=== PATIENT | male | born 1945 | race Caucasian/White ===

== ENCOUNTER → 2016-12-01 | Day surgery (SDC) | payer OTHER ==
[~2016-12-01] VITALS: Ht 172.7 cm; Wt 67.1 kg
--- NOTE | 2016-12-01 08:50 | Operative Report ---
Operative/Inv Procedure Report Surgery Date: 12/01/16 Name of Procedure: Cataract extraction lens implantation correction of presbyopia left eye Pre-Operative Diagnosis: Age-related cataract and presbyopia left eye 20/60 vision Post-Operative Diagnosis: Same Estimated Blood Loss: none Surgeon/Senior Maintenance Technician: HO MICHAEL MD Anesthesia: local monitored anesthesi Complications: None Operative/Procedure Note Note: The patient was brought to the operating room standard monitoring equipment was attached the patient was prepped and draped in the usual fashion for intraocular surgery. A lid speculum was placed to retract the lids. The case was begun by making 2 partial-thickness corneal relaxing incisions at 95. A temporal incision with a 2.4 mm keratome. The eye was stabilized with a Mckeon ring during this incision. 1 mL of non-preserved lidocaine was introduced into the anterior chamber to provide anesthesia. The anterior chamber was then filled and deepened with viscoelastic. A curvilinear capsulorrhexis was achieved using a 30-gauge needle and is a cystotome and capsulorrhexis was finished using a Utrata forceps. A second or paracentesis incision was made temporally with a 1 mm MVR blade. The lens was then hydrodissected with balanced salt solution and found to be rotatable. The lens was emulsified using phacoemulsification and a modified four-quadrant cracking technique. The residual cortical material was removed using automated irrigation and aspiration and as much of the anterior capsular rim was cleaned as well as possible. The posterior capsule was cleaned first with the automated machine on a low setting and then manually with a Elliot squeegee. The capsular bag was deepened with viscoelastic. The lens a Technis multifocal ZLB00 11.0 Diopter placed into the bag under direct visualization and rotated so that the haptics were at 12 and 6:00. Viscoelastic was then removed from the eye by flushing it out and then by automated irrigation and aspiration. The eye was pressurized to a normal tone. 1/10 of a cc of vancomycin solution was introduced into the anterior chamber to provide antibiotic prophylaxis. The wounds were sealed by hydrating the stroma adjacent to them and the eye was left at a proper tone after the wounds were checked and found not to be leaking. The lid speculum was removed from the orbit. Antibiotic and steroid drops were placed on the eye and then the eye was shielded. Monitoring equipment was removed from the patient and the patient was removed from the operative suite to the holding area. The patient tolerated the procedure well and will be seen in the office tomorrow.
== END ==
LOC: STS 01:53
DX: H25.9 Unspecified age-related cataract (principal); H52.4 Presbyopia
CPT/HCPCS: J2250; V2632; V2788-GY

== ENCOUNTER → 2016-12-15 | Day surgery (SDC) | payer OTHER ==
[~2016-12-15] VITALS: Ht 172.7 cm; Wt 67.1 kg
--- NOTE | 2016-12-15 13:15 | Operative Report ---
Operative/Inv Procedure Report Surgery Date: 12/15/16 Name of Procedure: Cataract extraction lens implantation right eye Pre-Operative Diagnosis: Age-related cataract right eye 30 vision 20/80 glare vision Post-Operative Diagnosis: Same Estimated Blood Loss: none Surgeon/Press Clipper: FERNNADA AMARO,HO Stringer Anesthesia: local monitored anesthesi Complications: None Operative/Procedure Note Note: The patient was brought to the operating room standard monitoring equipment was attached the patient was prepped and draped in the usual fashion for intraocular surgery. A lid speculum was placed to retract the lids. The case was begun by making a temporal incision with a 2.4 mm keratome. The eye was stabilized with a Mckeon ring during this incision. 1 mL of non-preserved lidocaine was introduced into the anterior chamber to provide anesthesia. The anterior chamber was then filled and deepened with viscoelastic. A curvilinear capsulorrhexis was achieved using a 30-gauge needle and is a cystotome and capsulorrhexis was finished using a Utrata forceps. A second or paracentesis incision was made temporally with a 1 mm MVR blade. The lens was then hydrodissected with balanced salt solution and found to be rotatable. The lens was emulsified using phacoemulsification and a modified four-quadrant cracking technique. The residual cortical material was removed using automated irrigation and aspiration and as much of the anterior capsular rim was cleaned as well as possible. The posterior capsule was cleaned first with the automated machine on a low setting and then manually with a Elliot squeegee. The capsular bag was deepened with viscoelastic. The lens a Technis 1 11.0 Diopter placed into the bag under direct visualization and rotated so that the haptics were at 12 and 6:00. Viscoelastic was then removed from the eye by flushing it out and then by automated irrigation and aspiration. The eye was pressurized to a normal tone. 1/10 of a cc of vancomycin solution was introduced into the anterior chamber to provide antibiotic prophylaxis. The wounds were sealed by hydrating the stroma adjacent to them and the eye was left at a proper tone after the wounds were checked and found not to be leaking. The lid speculum was removed from the orbit. Antibiotic and steroid drops were placed on the eye and then the eye was shielded. Monitoring equipment was removed from the patient and the patient was removed from the operative suite to the holding area. The patient tolerated the procedure well and will be seen in the office tomorrow.
== END ==
LOC: STS 03:43
DX: H25.9 Unspecified age-related cataract (principal)
CPT/HCPCS: J2250; V2632

== ENCOUNTER → 2017-12-10 | Day surgery (SDC) | payer OTHER ==
[~2017-12-10] VITALS: Ht 172.7 cm; Wt 68.9 kg
[~2017-12-10] MED LIST: AUGMENTIN 875-1 EACH PO; GRAPE SEED50 M1 PO; PREDNISONE10 M2 PO; PROBIOTIC1 EACH PO
--- NOTE | 2017-12-10 09:34 | Operative Report ---
Operative/Inv Procedure Report Surgery Date: 12/10/17 Name of Procedure: Endoscopic sinus surgery with 1. Middle meatal antrostomy with polypoid tissue removal, bilateral 2. Partial ethmoidectomy, bilateral 3. Inferior turbinate submucous resection, right 4. 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 Post-Operative Diagnosis: Same Estimated Blood Loss: less than 50ml Surgeon/Manager Service Desk: Alisia Solomon MD Anesthesia: general endotracheal tube Specimens: Ethmoid and maxillary sinusitis, left Ethmoid and maxillary sinusitis, middle turbinate , right Intraocular turbinates, right Microbiology: Maxillary sinus, left Complications: None Condition: Stable on leaving the OR Operative Indication: Persistent sinusitis despite prolonged antibiotic therapy CT sinus showing opacified left maxillary sinus with lateralized medial maxillary sinus wall suggestive of chronic infection, silent sinus disease Operative/Procedure Note Note: The patient was brought to the operating room. Placed on the operating room table in supine position. At first timeout was performed identifying the patient, ID numbers and procedure to be performed. Next general oral endotracheal anesthesia was induced. Endotracheal tube was secured with tape over the left corner of the lip. Operating room table was rotated 90 to the left and patient was positioned for sinus surgery with head slightly hyperextended and rotated to the right. At first vasoconstriction was carried by application of Afrin spray on cottonoid pledgets. Next middle meatus and middle turbinate were injected with 1% lidocaine with 1: 100,000 epinephrine approximately 6cc was injected on the left and another 6 mL on the right. This followed by placement of cotton pledgets saturated with cocaine solution and Afrin spray. Patient's face was then prepped and draped in routine manner and surgery was performed. Next, patient was draped in the sternal manner and surgery was performed. Endoscopic sinus surgery was carried out, first on the left and then on the right. The surgery was carried with direct visualization with 0 and 30 scopes. At first on the left, middle turbinate was inspected. It was previously trimed, patient had prior surgery in the past. Middle meatus was entered and partial ethmoidectomy was carried. The ethmoid air cells were removed with the straight and up turned to Vandana-Dianaley forceps. Ethmoid air cells were obstructed with hyperplastic mucosa. There was significant bony hyperostosis. Once ethmoidectomy was completed. Maxillary sinus ostium was explored. Residual uncinate process which was previously removed was partially removed with Setliff forceps to approach the ostium of maxillary sinus. Medial maxillary sinus wall was lateralized and deossified. Curved ball seeker was used to penetrate through the mucosa of medial maxillary sinus wall area this was done at the upper lateral aspect of the wall were then natural ostium should be. Once the sinus was opened thick inspissated rubbery material was suctioned and sent for cultures and pathology. Ostium was enlarged. Polypoid tissue removed. Procedure was completed on the left and surgery was now carried on the right. Middle turbinate was prominent and obstructing middle meatus. It was reduced along its inferior border with Gruenwald forceps. Middle meatus was entered. Then partial ethmoidectomy was carried. Both bone and mucosa were removed. The mucosa was the plastic and bone hyperostotic. Once ethmoidectomy was completed maxillary sinus ostium was searched for. Partial uncinectomy was carried with Setliff forceps. Curved ball seeker was used to search for the maxillary ostium. Ostium was dilated with a curved suction. Polypoid mucosa was removed. Sinus surgery was completed. Next inferior turbinates were inspected. The left inferior turbinate was then outfractured and not excised since it was not fully obstructing. However the right inferior turbinate was quite enlarged and it was removed along its inferior border in a submucous monitor. It was also then in and out fractured This was done with 0 scope visualization. Surgery was completed. Nasal packing was applied next. Gelfilm rolled up into a roll was placed into the middle meatus 2 pieces on each side, secured with 2-0 silk which was then taped to the cheeks with Steri-Strips. Nasal fossa was packed with Telfa saturated with Bactroban ointment. Telfa was stitched anteriorly with 2-0 silk to prevent posterior displacement. Surgery was completed. The patient was reawakened, extubated and taken to the recovery room in good condition. There were no complications. Estimated blood was was 20 mL. Findings: 1. Maxillary sinuses- right polypoid tissue and thickened secretions Leftlateralized and deossified medial maxillary sinus wall with thickened inspissated, rubbery secretions 4. Middle turbinates- right-hypertrophy with a obstruction of the middle meatus bilateral 5. Inferior Turbinates- righthypertrophy with obstruction of the inferior meatus Discharge Disposition: PACU
== END ==
LOC: STS 02:56
DX: J32.2 Chronic ethmoidal sinusitis (principal); J32.0 Chronic maxillary sinusitis; J34.3 Hypertrophy of nasal turbinates
CPT/HCPCS: 87070; 87075; 36415; 93005; 93010; C9399; J0131; J0690; J1100; J2250